=== PATIENT | female | born 1990 | race Caucasian/White ===

== ENCOUNTER 2017-10-25 09:09 | Emergency (ER) | payer OTHER ==
[~2017-10-25] VITALS: Ht 170.2 cm; Wt 68.0 kg
[~2017-10-25 09:09] MED LIST: ABAC300; ABAT250V; ACEASPCAF PO; ACEBUTCAFT PO; ACET325 PO; ACET500; ALBU90OI INH; AMIT25; AMOCLA875 PO; AMOX500 PO; ANTOXYBENA LEFTEAR; ANTOXYBENA OT; AZIT250 PO; BCP; BECLOMETHASONE10 GM INH; BIRTH CONTROL; BIRTH CONTROL IMPLAN; CEPH500 PO; CYCL10 PO; Cyclobenzaprine5 MG PO; DIPH50 PO; Esgic Tablet1 EACH; Esgic Tablet1 EACH PO; FLUO10 PO; HYDACE5 PO; HYOS.125; IBUP400; IBUP400 PO; IBUP800 PO; LEVONORGESTREL; LOESTRIN; LORA10ER PO; MEDR150I IM; MELO7.5 PO; MIGRANE MED; MIRENA; MOMENI; MULVITMIND PO; Mucinex600 MG PO; NAPR500EC PO; ONDA4 PO; ORTHO MICRONO0.35 MG PO; OXYACE5T; OXYACE5T PO; PRED20 PO; PRENATAL 19 TA1 EACH; PRENATAL VITAM1 EAC2 PO; PROAIR RESPICL90 MCG INH; PROCODE120 PO; PROM25 PO; PROM25S PR; PSEU120ER PO; Percocet 5-3251 EACH PO; Prednisone20 MG PO; QNASL8.7 GM INH; RANI150 PO; RXAMOX500 PO; RXHYDACE PO; RXPROM25S PR; SULTRIDS PO; SUMA25 PO; Triamcinolone A15 GM TOP; Ultram50 MG PO; Ventolin Soln3 ML INH; Zithromax250 MG PO; Zofran Odt4 MG SL; Zofran Odt8 MG SL; [UNRECOGNIZED DRUG - OTHER]; [UNRECOGNIZED DRUG - OTHER]
[2017-10-25] MEDS ORDERED: CEPH500 PO (09:58)
[2017-10-25] MEDS ORDERED: Bactrim Ds Tab1 EACH PO (09:58)
[2018-04-11] MEDS ORDERED: PHENERGAN25 MG PR (20:39)
[2018-04-11] MEDS ORDERED: CEPH500 PO (20:39)
[2018-04-11] MEDS ORDERED: Zofran Odt4 MG PO (20:39)
[2018-08-18] MEDS ORDERED: ALBU90OI INH (05:45)
[2018-08-18] MEDS ORDERED: Zofran Odt4 MG SL (07:00)
[2018-08-18] MEDS ORDERED: Lomotil Tablet1 EACH PO (07:00)
== END 2017-10-25 10:08 | disposition home or self-care (01) ==
LOC: ER 09:09
DX: L02.414 Cutaneous abscess of left upper limb (principal); Z88.5 Allergy status to narcotic agent; F17.200 Nicotine dependence, unspecified, uncomplicated
CPT/HCPCS: 99283

== ENCOUNTER → 2018-06-03 | Outpatient (CLI) | payer OTHER ==
[~2018-06-03] MED LIST changes: +Bactrim Ds Tab1 EACH PO; +PHENERGAN25 MG PR; +Zofran Odt4 MG PO
[2018-06-06 03:11] LABS: CHLAMYDIA TRACHOMATIS, NAA Negative (Negative); NEISSERIA GONORRHOEAE, NAA Negative (Negative)
== END | disposition home or self-care (01) ==
LOC: LAB SHORT 16:10 → LAB 16:10
PROVIDERS: Obstetrics & Gynecology
DX: N89.8 Other specified noninflammatory disorders of vagina (principal); Z20.2 Contact with and (suspected) exposure to infections with a predominantly sexual mode of transmission
CPT/HCPCS: 87070; 87205; 87491; 87591

== ENCOUNTER → 2018-09-09 | Outpatient (CLI) | payer OTHER ==
[~2018-09-09] MED LIST changes: +Lomotil Tablet1 EACH PO
[2018-09-09 20:06] LABS: Candida species (DNA Probe) Negative (NEGATIVE); G. vaginalis (DNA Probe) Positive (NEGATIVE); T. vaginalis (DNA Probe) Negative (NEGATIVE)
== END | disposition home or self-care (01) ==
LOC: LAB SHORT 16:35 → LAB 16:35
PROVIDERS: Obstetrics & Gynecology
DX: N89.8 Other specified noninflammatory disorders of vagina (principal)
CPT/HCPCS: 87480; 87510; 87660

== ENCOUNTER 2020-11-16 16:07 | Emergency (ER) | payer OTHER ==
[~2020-11-16] VITALS: Ht 170.2 cm; Wt 65.8 kg
[2020-11-16] MEDS ORDERED: Veetids 500500 MG PO (16:34)
[2020-11-16] MEDS ORDERED: PSEU120ER PO (16:34)
[2020-11-16] MEDS ORDERED: Dexamethasone4 MG PO (16:34)
== END 2020-11-16 16:35 | disposition home or self-care (01) ==
LOC: ER 16:07
DX: J02.9 Acute pharyngitis, unspecified (principal); Z88.5 Allergy status to narcotic agent; Z87.891 Personal history of nicotine dependence
CPT/HCPCS: 99283

== ENCOUNTER 2021-04-23 15:32 | Emergency (ER) | payer OTHER ==
[~2021-04-23] VITALS: Ht 170.2 cm; Wt 72.6 kg
[~2021-04-23 15:32] MED LIST changes: +Dexamethasone4 MG PO; +Veetids 500500 MG PO
[2021-04-23] MEDS ORDERED: BUSP10 PO (16:58)
[2021-04-23] MEDS ORDERED: VITAMIN D325 MC3 PO (16:58)
[2021-04-23] MEDS ORDERED: CALCIUM CARBON500 M4 PO (16:58)
[2021-04-23] MEDS ORDERED: LIDO700A20 TOP (17:26)
[2021-04-23] MEDS ORDERED: CYCL10 PO (17:26)
== END 2021-04-23 17:41 | disposition home or self-care (01) ==
LOC: ER 15:32
DX: S16.1XXA Strain of muscle, fascia and tendon at neck level, initial encounter (principal); Z79.899 Other long term (current) drug therapy; Z87.891 Personal history of nicotine dependence; V49.40XA Driver injured in collision with unspecified motor vehicles in traffic accident, initial encounter
CPT/HCPCS: 72040; 72070; 96372; 99284-25; A9270; J1885

== ENCOUNTER 2021-08-22 18:35 | Emergency (ER) | payer OTHER ==
[~2021-08-22] VITALS: Ht 170.2 cm; Wt 74.8 kg
[~2021-08-22 18:35] MED LIST changes: +BUSP10 PO; +CALCIUM CARBON500 M4 PO; +LIDO700A20 TOP; +VITAMIN D325 MC3 PO
== END 2021-08-22 21:12 | disposition home or self-care (01) ==
LOC: ER 18:35
DX: U07.1 COVID-19 (principal); R51.9 Headache, unspecified; Z88.5 Allergy status to narcotic agent; Z79.899 Other long term (current) drug therapy
CPT/HCPCS: 71045; 96372; A9270; J1885

== ENCOUNTER 2021-11-11 06:13 | Day surgery (SDC) | payer OTHER ==
[~2021-11-11] VITALS: Ht 170.2 cm; Wt 79.1 kg
[~2021-11-11 06:13] MED LIST changes: +PARO30 PO
[2021-11-11] MEDS ORDERED: HYDROCODONE-AC1 EA16 PO (07:03)
--- NOTE | 2021-11-11 08:05 | NUR ---
11/11/21 0805 Kenny Cantu 1 MG EPI ADDED TO THE FIRST BAG OF LR PER ORDER FOR IRRIGATION. BUPIVACAINE 0.5% 30 MLS MIXED WITH EPI 0.15 ML PER ORDER TO CONSTITUTE BUPIVACAINE 0.5% 1:200,000 FOR INJECTION AT OPSITE BY DR FIELD.
--- NOTE | 2021-11-11 10:59 | NUR ---
11/11/21 1059 ARELI [facility] REPORT TAKEN FROM TRUE SEN LXW- 150MCG FENTANYL GIVEN IN PACU AND PERCOCET GIVEN PO IN STEP 1015 PRIOR TO DISCHARGE. PT STATES READY TO GET HOME SAAD. VITALS STABLE AT DISCHARGE.
== END 2021-11-11 10:52 | disposition home or self-care (01) ==
LOC: ORSCSDS 06:13
PROVIDERS: Orthopaedic Surgery
PROC: 0SQD4ZZ Repair Left Knee Joint, Percutaneous Endoscopic Approach (ICD-10-PCS; principal; 2021-11-11 07:30)
DX: M23.204 Derangement of unspecified medial meniscus due to old tear or injury, left knee (principal); M23.004 Cystic meniscus, unspecified medial meniscus, left knee; J45.909 Unspecified asthma, uncomplicated; Z79.51 Long term (current) use of inhaled steroids; F41.8 Other specified anxiety disorders; Z87.891 Personal history of nicotine dependence; K21.9 Gastro-esophageal reflux disease without esophagitis; Z79.899 Other long term (current) drug therapy
CPT/HCPCS: A9270; C1713; J0171; J0690; J1100; J1885; J2405; J2704; J3010; J7120

== ENCOUNTER → 2021-12-27 | Outpatient (CLI) | payer OTHER ==
[~2021-12-27] MED LIST changes: +HYDROCODONE-AC1 EA16 PO
[2021-12-27 15:34] LABS: BASOPHILS ABSOLUTE AUTO 0.05 K/mm3 (0.00-0.23); BASOPHILS PERCENT AUTO 1 % (0-2); EOSINOPHILS ABSOLUTE AUTO 0.44 K/mm3 (0.00-0.68); EOSINOPHILS PERCENT AUTO 6 % (0-6); Hemoglobin 12.6 g/dL (11.5-16.0); IMMATURE GRAN ABSOLUTE AUTO 0.02 K/mm3 (0.00-0.10); IMMATURE GRAN PERCENT AUTO 0 % (0-1); LYMPHOCYTES ABSOLUTE AUTO 2.07 K/mm3 (0.84-5.20); LYMPHOCYTES PERCENT AUTO 29 % (21-46); MONOCYTES ABSOLUTE AUTO 0.47 K/mm3 (0.16-1.47); MONOCYTES PERCENT AUTO 7 % (4-13); Mean Corpuscular HGB 28.6 pg (26.0-34.0); Mean Corpuscular HGB Conc 33.2 g/dL (31.5-36.5); Mean Corpuscular Volume 86 fL (80-100); Mean Platelet Volume 10.7 fL (9.1-12.4); NEUTROPHILS ABSOLUTE AUTO 4.12 K/mm3 (1.96-9.15); NEUTROPHILS PERCENT AUTO 57 % (41-73); Platelet Count 315 K/mm3 (150-400); RDW Coefficient Variation 12.1 % (11.7-14.2); RDW Standard Deviation 38.9 fL (35.1-46.3); Red Blood Cell Count 4.41 M/mm3 (3.80-5.20); White Blood Cell Count 7.17 K/mm3 (4.00-11.30)
[2021-12-27 20:12] LABS: Alanine Aminotransfer (ALT/SGP 18 U/L (12-78); Albumin, Blood 3.8 g/dL (3.4-5.0); Albumin/Globulin Ratio 1.2 (0.8-1.8); Alk Phos 90 U/L (50-136); Anion Gap 4 mmol/L (6-16); Aspartate Aminotrans (AST/SGOT 13 U/L (12-37); Bilirubin, Total 0.3 mg/dL (0.1-1.0); Blood Urea Nitrogen 10 mg/dL (8-24); Bun/Creatinine Ratio 13.7 (12.0-20.0); CO2, Blood 29 mmol/L (21-32); Calcium, Blood 8.6 mg/dL (8.5-10.1); Chloride, Blood 107 mmol/L (98-108); Creatinine, Blood 0.73 mg/dL (0.40-1.00); Globulin, Blood 3.2 g/dL (2.2-4.0); Glomerular Filtration Rate >60 (60-); Glucose, Blood 105 mg/dL (70-99); Potassium, Blood 4.2 mmol/L (3.5-5.5); Sodium, Blood 140 mmol/L (136-145); Thyroid Stimulating Hormone 0.908 uIU/mL (0.360-4.800)
== END | disposition home or self-care (01) ==
LOC: LAB SHORT 12:35
PROVIDERS: Nurse Practitioner
DX: S81.812A Laceration without foreign body, left lower leg, initial encounter (principal); R42 Dizziness and giddiness
CPT/HCPCS: 80053; 82306; 82607; 82746; 84443; 85025; 87070; 87075; 87077; 87147; 87186; 87205

== ENCOUNTER → 2022-01-03 | Outpatient (CLI) | payer OTHER ==
[2022-01-04 14:11] LABS: HPV 16 Negative (Negative); HPV 18 Negative (Negative); HPV OTHER HR TYPES Negative (Negative)
== END | disposition home or self-care (01) ==
LOC: LAB SHORT 12:39 → LAB 12:39
PROVIDERS: Obstetrics & Gynecology
DX: Z12.4 Encounter for screening for malignant neoplasm of cervix (principal)
CPT/HCPCS: 87624; G0123

== ENCOUNTER 2022-04-25 14:17 | Emergency (ER) | payer OTHER ==
[~2022-04-25] VITALS: Ht 170.2 cm; Wt 73.9 kg
[2022-04-25 14:43] LABS: BASOPHILS ABSOLUTE AUTO 0.05 K/mm3 (0.00-0.23); BASOPHILS PERCENT AUTO 1 % (0-2); EOSINOPHILS ABSOLUTE AUTO 0.37 K/mm3 (0.00-0.68); EOSINOPHILS PERCENT AUTO 4 % (0-6); Hematocrit 36.5 % (33.0-51.0); Hemoglobin 12.7 g/dL (11.5-16.0); IMMATURE GRAN ABSOLUTE AUTO 0.03 K/mm3 (0.00-0.10); IMMATURE GRAN PERCENT AUTO 0 % (0-1); LYMPHOCYTES ABSOLUTE AUTO 2.67 K/mm3 (0.84-5.20); LYMPHOCYTES PERCENT AUTO 26 % (21-46); MONOCYTES ABSOLUTE AUTO 0.43 K/mm3 (0.16-1.47); MONOCYTES PERCENT AUTO 4 % (4-13); Mean Corpuscular HGB 28.9 pg (26.0-34.0); Mean Corpuscular HGB Conc 34.8 g/dL (31.5-36.5); Mean Corpuscular Volume 83 fL (80-100); Mean Platelet Volume 10.7 fL (9.1-12.4); NEUTROPHILS ABSOLUTE AUTO 6.93 K/mm3 (1.96-9.15); NEUTROPHILS PERCENT AUTO 66 % (41-73); Platelet Count 317 K/mm3 (150-400); RDW Coefficient Variation 12.8 % (11.7-14.2); RDW Standard Deviation 38.8 fL (35.1-46.3); Red Blood Cell Count 4.39 M/mm3 (3.80-5.20); White Blood Cell Count 10.48 K/mm3 (4.00-11.30)
[2022-04-25 15:04] LABS: Source, Urine Clean Catch
[2022-04-25 15:06] LABS: Acetaminophen, Random 10.3 ug/mL (10.0-30.0); Alanine Aminotransfer (ALT/SGP 20 U/L (12-78); Albumin, Blood 3.8 g/dL (3.4-5.0); Albumin/Globulin Ratio 1.2 (0.8-1.8); Alk Phos 83 U/L (50-136); Anion Gap 10 mmol/L (6-16); Aspartate Aminotrans (AST/SGOT 22 U/L (12-37); Bilirubin, Total 0.5 mg/dL (0.1-1.0); Blood Urea Nitrogen 7 mg/dL (8-24); Bun/Creatinine Ratio 11.1 (12.0-20.0); CO2, Blood 25 mmol/L (21-32); Calcium, Blood 8.5 mg/dL (8.5-10.1); Chloride, Blood 109 mmol/L (98-108); Creatinine, Blood 0.63 mg/dL (0.40-1.00); Ethanol (Alcohol), Blood, Med 75 mg/dL; Globulin, Blood 3.3 g/dL (2.2-4.0); Glomerular Filtration Rate 120 (60-); Glucose, Blood 106 mg/dL (70-99); Potassium, Blood 3.4 mmol/L (3.5-5.5); Salicylate <1.7 mg/dL (2.8-20.0); Sodium, Blood 144 mmol/L (136-145); Total Protein, Blood 7.1 g/dL (6.4-8.2)
[2022-04-25 15:08] LABS: Appearance, Urine Clear (Clear); Bilirubin, Urine Neg (Neg); Blood, Urine 1+ (Neg); Color, Urine Yellow (P-Yellow); Glucose Qualitative, Urine Neg (Neg); Ketones, Urine Neg (Neg); Leukocyte Esterase, Urine Neg (Neg); Nitrite, Urine Neg (Neg); Protein, Urine Neg (Neg); Specific Gravity, Urine 1.005 (1.003-1.022); Urobilinogen, Urine NORM (Normal)
[2022-04-25 15:18] LABS: Bacteria Rare /hpf; Red Blood Cells, Urine 0-2 /hpf (0-2); Squamous Epithelial Cells Few /hpf (Few); White Blood Cells, Urine 0-2 /hpf (0-5)
[2022-04-25 15:23] LABS: U Amphetamine Screen Not Detected; U Barbituate Screen Not Detected; U Benzodiazapine Screen Not Detected; U Buprenorphine Screen Not Detected; U Cannabinoids Screen DETECTED; U Cocaine Screen Not Detected; U Methadone Screen Not Detected; U Methamphetamine Screen Not Detected; U Opiates Screen Not Detected; U Oxycodone Screen Not Detected; U Phencyclidine Screen Not Detected; U Propoxyphene Screen Not Detected
== END 2022-04-25 16:55 | disposition home or self-care (01) ==
LOC: ER 14:17
PROVIDERS: Physician Assistant
DX: R45.851 Suicidal ideations (principal); F43.9 Reaction to severe stress, unspecified; Z88.5 Allergy status to narcotic agent; Z79.899 Other long term (current) drug therapy
CPT/HCPCS: 36415; 80053; 81001; 81025; 85025; A9270; G0480

== ENCOUNTER 2022-11-30 15:24 | Emergency (ER) | payer OTHER ==
[~2022-11-30] VITALS: Ht 170.2 cm; Wt 81.7 kg
[~2022-11-30 15:24] MED LIST changes: +CITALOPRAM HBR10 MG PO; +ERGO400 PO; +KLONOPIN0.5 M9 PO; +LAMOTRIGINE100 M1 PO; +ONDA4ODT MM; +OXYACE7.5T PO
[2022-11-30 16:09] LABS: BASOPHILS ABSOLUTE AUTO 0.04 K/mm3 (0.00-0.23); BASOPHILS PERCENT AUTO 0 % (0-2); EOSINOPHILS PERCENT AUTO 2 % (0-6); Hematocrit 43.1 % (33.0-51.0); Hemoglobin 14.5 g/dL (11.5-16.0); IMMATURE GRAN PERCENT AUTO 1 % (0-1); LYMPHOCYTES ABSOLUTE AUTO 2.27 K/mm3 (0.84-5.20); LYMPHOCYTES PERCENT AUTO 15 % (21-46); MONOCYTES ABSOLUTE AUTO 0.53 K/mm3 (0.16-1.47); MONOCYTES PERCENT AUTO 3 % (4-13); Mean Corpuscular HGB 27.6 pg (26.0-34.0); Mean Corpuscular HGB Conc 33.6 g/dL (31.5-36.5); Mean Corpuscular Volume 82 fL (80-100); Mean Platelet Volume 10.2 fL (9.1-12.4); NEUTROPHILS ABSOLUTE AUTO 12.43 K/mm3 (1.96-9.15); NEUTROPHILS PERCENT AUTO 79 % (41-73); Platelet Count 348 K/mm3 (150-400); RDW Coefficient Variation 12.1 % (11.7-14.2); RDW Standard Deviation 36.4 fL (35.1-46.3); Red Blood Cell Count 5.25 M/mm3 (3.80-5.20); White Blood Cell Count 15.67 K/mm3 (4.00-11.30)
[2022-11-30 16:28] LABS: Albumin, Blood 3.6 g/dL (3.4-5.0); Albumin/Globulin Ratio 0.8 (0.8-1.8); Bilirubin, Total 0.2 mg/dL (0.1-1.0); Bun/Creatinine Ratio 19.9 (12.0-20.0); Calcium, Blood 9.3 mg/dL (8.5-10.1); Creatinine, Blood 0.6 mg/dL (0.40-1.00); Globulin, Blood 4.6 g/dL (2.2-4.0); Potassium, Blood 3.6 mmol/L (3.5-5.5); Total Protein, Blood 8.2 g/dL (6.4-8.2)
[2022-11-30 16:57] LABS: Source, Urine Clean Catch
[2022-11-30 17:12] LABS: Appearance, Urine Clear (Clear); Bilirubin, Urine Neg (Neg); Blood, Urine 3+ (Neg); Color, Urine Yellow (P-Yellow); Glucose Qualitative, Urine Neg (Neg); Ketones, Urine Neg (Neg); Leukocyte Esterase, Urine Neg (Neg); Nitrite, Urine Neg (Neg); Protein, Urine Neg (Neg); Specific Gravity, Urine 1.015 (1.003-1.022); Urobilinogen, Urine NORM (Normal); pH, Urine 6.5 (5.0-8.0)
[2022-11-30 17:34] LABS: White Blood Cells, Urine 0-2 /hpf (0-5)
[2022-11-30 17:36] LABS: Bacteria Mod /hpf; Squamous Epithelial Cells Rare /hpf (Few)
[2022-11-30] MEDS ORDERED: METO5A PO (18:49)
[2022-12-02] MEDS ORDERED: Magic Bullet10 MG PR (11:30)
== END 2022-11-30 19:07 | disposition home or self-care (01) ==
LOC: ER 15:24
PROVIDERS: Physician Assistant
DX: K59.00 Constipation, unspecified (principal); F17.200 Nicotine dependence, unspecified, uncomplicated; Z79.899 Other long term (current) drug therapy; Z88.5 Allergy status to narcotic agent
CPT/HCPCS: 36415; 74177; 80053; 81001; 85025; 87086; 96374-59; 96375; 99284-25; A9270; J1885; J2405; J2765; J3010; J7030; Q9967